=== PATIENT | female | born 1950 | race Caucasian/White ===

== ENCOUNTER 2017-04-02 07:14 | Outpatient (CLI) | payer OTHER ==
[~2017-04-02 07:14] MED LIST: METFORMIN HCL500 MG; METFORMIN HYDR100 GM; PRILOSEC10 M1; ZESTRIL10 M1; ZOCOR20 MG
== END 2017-04-02 07:21 | disposition home or self-care (01) ==
LOC: TOM 07:14
DX: R10.31 Right lower quadrant pain (principal); D51.0 Vitamin B12 deficiency anemia due to intrinsic factor deficiency; D51.1 Vitamin B12 deficiency anemia due to selective vitamin B12 malabsorption with proteinuria; D53.0 Protein deficiency anemia; D63.1 Anemia in chronic kidney disease; D50.8 Other iron deficiency anemias; I10 Essential (primary) hypertension; E08.65 Diabetes mellitus due to underlying condition with hyperglycemia; N18.3 Chronic kidney disease, stage 3 (moderate)

== ENCOUNTER 2019-01-17 12:51 | Outpatient (CLI) | payer OTHER | END 2019-01-17 12:56 | disposition home or self-care (01) | LOC: MAMO-SONO 12:51 | DX: Z12.31 Encounter for screening mammogram for malignant neoplasm of breast (principal); Z87.898 Personal history of other specified conditions; N64.0 Fissure and fistula of nipple ==